=== PATIENT | female | born 1945 ===

== ENCOUNTER 2022-02-20 12:15 | Inpatient (IN) | payer OTHER ==
[~2022-02-20] VITALS: Ht 129.5 cm; Wt 78.9 kg
[2022-02-22] MEDS ORDERED: LISINOPRIL20 MG (08:01)
[2022-02-22] MEDS ORDERED: DULOXETINE HCL30 MG (08:01)
== END 2022-03-03 20:14 | disposition home or self-care (01) | DRG 330 ==
LOC: O/R 02-22 05:58 → SURH 02-22 05:58 → EDBD 02-22 12:15 → SURH 02-22 13:27
PROVIDERS: ADMIT Colon & Rectal Surgery; ATTEND Colon & Rectal Surgery
PROC: 07BB4ZZ Excision of Mesenteric Lymphatic, Percutaneous Endoscopic Approach (ICD-10-PCS; 2022-02-22)
PROC: 0DTF4ZZ Resection of Right Large Intestine, Percutaneous Endoscopic Approach (ICD-10-PCS; principal; 2022-02-22 07:15)
PROC: BW21ZZZ Computerized Tomography (CT Scan) of Abdomen and Pelvis (ICD-10-PCS; 2022-02-23)
PROC: 30233N1 Transfusion of Nonautologous Red Blood Cells into Peripheral Vein, Percutaneous Approach (ICD-10-PCS; 2022-02-24)
PROC: BW21ZZZ Computerized Tomography (CT Scan) of Abdomen and Pelvis (ICD-10-PCS; 2022-02-27)
PROC: 02HV33Z Insertion of Infusion Device into Superior Vena Cava, Percutaneous Approach (ICD-10-PCS; 2022-02-28)
DX: D12.0 Benign neoplasm of cecum (principal); K91.89 Other postprocedural complications and disorders of digestive system; K56.7 Ileus, unspecified; K62.5 Hemorrhage of anus and rectum; N39.0 Urinary tract infection, site not specified; D62 Acute posthemorrhagic anemia; R33.8 Other retention of urine; R31.0 Gross hematuria; R59.0 Localized enlarged lymph nodes; E03.8 Other specified hypothyroidism; Z20.822 Contact with and (suspected) exposure to COVID-19